=== PATIENT | female | born 1980 | race Caucasian/White ===

== ENCOUNTER 2020-08-09 19:16 | Emergency (ER) | payer OTHER ==
[~2020-08-09] VITALS: Ht 144.8 cm; Wt 49.9 kg
[2020-08-09 20:18] LABS: Source, Urine Clean Catch
[2020-08-09 20:28] LABS: Bilirubin, Urine Neg (Neg); Blood, Urine 5+ (Neg); Glucose Qualitative, Urine Neg (Neg); Ketones, Urine 1+ (Neg); Leukocyte Esterase, Urine 1+ (Neg); Nitrite, Urine Neg (Neg); Protein, Urine 4+ (Neg); Specific Gravity, Urine 1.015 (1.003-1.022); Urobilinogen, Urine NORM (Normal)
[2020-08-09 20:29] LABS: Appearance, Urine Hazy (Clear); Color, Urine Yellow (P-Yellow); Mucus Light (0-Heavy); Red Blood Cells, Urine TNTC /hpf (0-2); Squamous Epithelial Cells Few /hpf (Few); Transitional Epithelial Cells Few /hpf (0-Rare)
[2020-08-09 20:29] LABS: BASOPHILS ABSOLUTE AUTO 0.05 K/mm3 (0.00-0.23); BASOPHILS PERCENT AUTO 0 % (0-2); EOSINOPHILS ABSOLUTE AUTO 0.22 K/mm3 (0.00-0.68); EOSINOPHILS PERCENT AUTO 1 % (0-6); Hematocrit 34.2 % (33.0-51.0); IMMATURE GRAN ABSOLUTE AUTO 0.15 K/mm3 (0.00-0.10); IMMATURE GRAN PERCENT AUTO 1 % (0-1); LYMPHOCYTES ABSOLUTE AUTO 2.61 K/mm3 (0.84-5.20); LYMPHOCYTES PERCENT AUTO 16 % (21-46); MONOCYTES ABSOLUTE AUTO 1.15 K/mm3 (0.16-1.47); MONOCYTES PERCENT AUTO 7 % (4-13); Mean Corpuscular HGB 30.1 pg (26.0-34.0); Mean Corpuscular HGB Conc 32.2 g/dL (31.5-36.5); Mean Corpuscular Volume 93 fL (80-100); Mean Platelet Volume 10.5 fL (9.1-12.4); NEUTROPHILS ABSOLUTE AUTO 12.62 K/mm3 (1.96-9.15); NEUTROPHILS PERCENT AUTO 75 % (41-73); Platelet Count 321 K/mm3 (150-400); RDW Coefficient Variation 13.1 % (11.7-14.2); RDW Standard Deviation 45.1 fL (35.1-46.3); Red Blood Cell Count 3.66 M/mm3 (3.80-5.20)
[2020-08-09 20:30] LABS: Bacteria Mod /hpf
[2020-08-09 20:47] LABS: Alanine Aminotransfer (ALT/SGP 12 U/L (12-78); Albumin, Blood 3.1 g/dL (3.4-5.0); Albumin/Globulin Ratio 0.7 (0.8-1.8); Alk Phos 110 U/L (50-136); Anion Gap 6 mmol/L (6-16); Aspartate Aminotrans (AST/SGOT 10 U/L (12-37); Bilirubin, Total 0.3 mg/dL (0.1-1.0); Blood Urea Nitrogen 10 mg/dL (8-24); Bun/Creatinine Ratio 13.5 (12.0-20.0); CO2, Blood 27 mmol/L (21-32); Calcium, Blood 8.9 mg/dL (8.5-10.1); Chloride, Blood 106 mmol/L (98-108); Creatinine, Blood 0.74 mg/dL (0.40-1.00); Globulin, Blood 4.7 g/dL (2.2-4.0); Glomerular Filtration Rate >60 (60-); Glucose, Blood 95 mg/dL (70-99); Potassium, Blood 3.5 mmol/L (3.5-5.5); Sodium, Blood 139 mmol/L (136-145); Total Protein, Blood 7.8 g/dL (6.4-8.2)
[2020-08-09 21:27] LABS: Magnesium, Blood 1.9 mg/dL (1.6-2.4)
[2020-08-09] MEDS ORDERED: ONDA4ODT MM (22:35)
[2020-08-09] MEDS ORDERED: Keflex500 MG PO (22:35)
[2020-08-14] MEDS ORDERED: PRENATAL TABLE1 EAC2 PO (21:10)
[2020-08-15] MEDS ORDERED: IBUP200 PO (00:07)
[2020-08-15] MEDS ORDERED: ACET500 PO (00:08)
[2020-08-16] MEDS ORDERED: Prednisone10 MG PO (11:11)
== END 2020-08-09 23:46 | disposition home or self-care (01) ==
LOC: ER 19:16
PROVIDERS: Emergency Medicine
DX: N39.0 Urinary tract infection, site not specified (principal)
CPT/HCPCS: 36415; 74177; 80053; 81001; 83605; 83690; 83735; 84145; 85025; 87040; 87086; 96374-59; 96375; 99284-25; A9270; J1170; J2405; J7120; Q9967

== ENCOUNTER 2020-08-12 18:25 | Emergency (ER) | payer OTHER ==
[~2020-08-12 18:25] MED LIST: Keflex500 MG PO; ONDA4ODT MM
[2020-08-12 21:05] LABS: Appearance, Urine Hazy (Clear); Color, Urine Yellow (P-Yellow); Glucose Qualitative, Urine Neg (Neg); Ketones, Urine 3+ (Neg); Leukocyte Esterase, Urine 1+ (Neg); Nitrite, Urine Pos (Neg); Protein, Urine 4+ (Neg)
[2020-08-12 21:07] LABS: Bilirubin, Urine Neg (Neg); Blood, Urine 5+ (Neg); Urobilinogen, Urine NORM (Normal)
[2020-08-12 21:08] LABS: Bacteria Few /hpf; Red Blood Cells, Urine TNTC /hpf (0-2); Squamous Epithelial Cells Rare /hpf (Few)
[2020-08-12 21:19] LABS: BASOPHILS ABSOLUTE AUTO 0.07 K/mm3 (0.00-0.23); BASOPHILS PERCENT AUTO 0 % (0-2); EOSINOPHILS ABSOLUTE AUTO 0.19 K/mm3 (0.00-0.68); EOSINOPHILS PERCENT AUTO 1 % (0-6); Hematocrit 32.7 % (33.0-51.0); Hemoglobin 10.4 g/dL (11.5-16.0); IMMATURE GRAN ABSOLUTE AUTO 0.34 K/mm3 (0.00-0.10); IMMATURE GRAN PERCENT AUTO 2 % (0-1); LYMPHOCYTES PERCENT AUTO 12 % (21-46); MONOCYTES ABSOLUTE AUTO 1.01 K/mm3 (0.16-1.47); MONOCYTES PERCENT AUTO 6 % (4-13); Mean Corpuscular HGB 29.5 pg (26.0-34.0); Mean Corpuscular HGB Conc 31.8 g/dL (31.5-36.5); Mean Corpuscular Volume 93 fL (80-100); Mean Platelet Volume 10.5 fL (9.1-12.4); NEUTROPHILS ABSOLUTE AUTO 14.37 K/mm3 (1.96-9.15); NEUTROPHILS PERCENT AUTO 79 % (41-73); Platelet Count 361 K/mm3 (150-400); RDW Coefficient Variation 13.2 % (11.7-14.2); RDW Standard Deviation 44.8 fL (35.1-46.3); Red Blood Cell Count 3.53 M/mm3 (3.80-5.20); White Blood Cell Count 18.08 K/mm3 (4.00-11.30)
[2020-08-12 22:05] LABS: Alanine Aminotransfer (ALT/SGP 11 U/L (12-78); Albumin/Globulin Ratio 0.6 (0.8-1.8); Alk Phos 107 U/L (50-136); Anion Gap 7 mmol/L (6-16); Aspartate Aminotrans (AST/SGOT 7 U/L (12-37); Bilirubin, Total 0.2 mg/dL (0.1-1.0); Blood Urea Nitrogen 5 mg/dL (8-24); Bun/Creatinine Ratio 7.7 (12.0-20.0); CO2, Blood 28 mmol/L (21-32); Calcium, Blood 9.2 mg/dL (8.5-10.1); Chloride, Blood 105 mmol/L (98-108); Creatinine, Blood 0.65 mg/dL (0.40-1.00); Globulin, Blood 4.8 g/dL (2.2-4.0); Glomerular Filtration Rate >60 (60-); Glucose, Blood 88 mg/dL (70-99); Potassium, Blood 3.6 mmol/L (3.5-5.5); Sodium, Blood 140 mmol/L (136-145); Total Protein, Blood 7.8 g/dL (6.4-8.2)
[2020-08-12] MEDS ORDERED: Reglan10 MG PO (23:06)
[2020-08-12] MEDS ORDERED: CEPH500 PO (23:06)
== END 2020-08-12 23:17 | disposition home or self-care (01) ==
LOC: ER 18:25
PROVIDERS: Emergency Medicine; Physician Assistant
DX: N12 Tubulo-interstitial nephritis, not specified as acute or chronic (principal); E86.0 Dehydration; Z88.8 Allergy status to other drugs, medicaments and biological substances; Z88.1 Allergy status to other antibiotic agents; Z88.5 Allergy status to narcotic agent
CPT/HCPCS: 36415; 76770; 80053; 81001; 85025; 87086; 96365; 96375; 99284-25; A9270; J0690; J2765; J7030

== ENCOUNTER 2020-08-14 12:14 | Observation (INO) | payer OTHER ==
[~2020-08-14] VITALS: Ht 144.8 cm; Wt 47.6 kg
[~2020-08-14 12:14] MED LIST changes: +CEPH500 PO; +Reglan10 MG PO
[2020-08-14 13:05] LABS: BASOPHILS ABSOLUTE AUTO 0.09 K/mm3 (0.00-0.23); BASOPHILS PERCENT AUTO 1 % (0-2); EOSINOPHILS ABSOLUTE AUTO 0.25 K/mm3 (0.00-0.68); EOSINOPHILS PERCENT AUTO 1 % (0-6); Hematocrit 37.8 % (33.0-51.0); IMMATURE GRAN ABSOLUTE AUTO 0.51 K/mm3 (0.00-0.10); IMMATURE GRAN PERCENT AUTO 3 % (0-1); LYMPHOCYTES ABSOLUTE AUTO 2.16 K/mm3 (0.84-5.20); LYMPHOCYTES PERCENT AUTO 12 % (21-46); MONOCYTES ABSOLUTE AUTO 0.73 K/mm3 (0.16-1.47); MONOCYTES PERCENT AUTO 4 % (4-13); Mean Corpuscular HGB 29.6 pg (26.0-34.0); Mean Corpuscular HGB Conc 31.7 g/dL (31.5-36.5); Mean Corpuscular Volume 93 fL (80-100); Mean Platelet Volume 10.1 fL (9.1-12.4); NEUTROPHILS ABSOLUTE AUTO 14.34 K/mm3 (1.96-9.15); NEUTROPHILS PERCENT AUTO 79 % (41-73); Platelet Count 453 K/mm3 (150-400); RDW Coefficient Variation 13.1 % (11.7-14.2); RDW Standard Deviation 45.1 fL (35.1-46.3); Red Blood Cell Count 4.05 M/mm3 (3.80-5.20); White Blood Cell Count 18.08 K/mm3 (4.00-11.30)
[2020-08-14 13:25] LABS: Alanine Aminotransfer (ALT/SGP 14 U/L (12-78); Albumin, Blood 3.2 g/dL (3.4-5.0); Albumin/Globulin Ratio 0.6 (0.8-1.8); Alk Phos 119 U/L (50-136); Anion Gap 7 mmol/L (6-16); Aspartate Aminotrans (AST/SGOT 12 U/L (12-37); Bilirubin, Total 0.3 mg/dL (0.1-1.0); Blood Urea Nitrogen 3 mg/dL (8-24); Bun/Creatinine Ratio 4.3 (12.0-20.0); CO2, Blood 26 mmol/L (21-32); Calcium, Blood 9.6 mg/dL (8.5-10.1); Chloride, Blood 107 mmol/L (98-108); Creatinine, Blood 0.69 mg/dL (0.40-1.00); Globulin, Blood 5.4 g/dL (2.2-4.0); Glomerular Filtration Rate >60 (60-); Glucose, Blood 90 mg/dL (70-99); Potassium, Blood 3.8 mmol/L (3.5-5.5); Sodium, Blood 140 mmol/L (136-145); Total Protein, Blood 8.6 g/dL (6.4-8.2)
[2020-08-14 18:51] LABS: Source, Urine Clean Catch
[2020-08-14 19:04] LABS: Bilirubin, Urine Neg (Neg); Blood, Urine 4+ (Neg); Glucose Qualitative, Urine Neg (Neg); Ketones, Urine 2+ (Neg); Leukocyte Esterase, Urine Neg (Neg); Nitrite, Urine Neg (Neg); Protein, Urine 3+ (Neg); Urobilinogen, Urine NORM (Normal)
[2020-08-14 19:14] LABS: Amorphous Light (0-Heavy); Appearance, Urine Hazy (Clear); Bacteria Few /hpf; Color, Urine Yellow (P-Yellow); Mucus Mod (0-Heavy); Red Blood Cells, Urine 50-100 /hpf (0-2); Squamous Epithelial Cells Mod /hpf (Few); White Blood Cells, Urine Rare /hpf (0-5)
[2020-08-14] MEDS ORDERED: LOW DOSE ASPIRI81 M1 PO (21:09)
[2020-08-14] MEDS ORDERED: PRENATAL TABLE1 EAC2 PO ×2 (21:10)
[2020-08-15] MEDS ORDERED: IBUP200 PO ×2 (00:07)
[2020-08-15] MEDS ORDERED: ACET500 PO ×2 (00:08)
--- NOTE | 2020-08-15 00:25 | NUR ---
TYLENOL PATIENT STATES NOT ALLERGIC TO TYLENOL. ONLY ALLERGIC TO THE OTHER COMPONENT IN VICODIN. CLARIFIED THIS WITH PATIENT AND RELAYED TO DR. MARCOS.
[2020-08-15 04:57] LABS: BASOPHILS ABSOLUTE AUTO 0.04 K/mm3 (0.00-0.23); BASOPHILS PERCENT AUTO 0 % (0-2); EOSINOPHILS ABSOLUTE AUTO 0.02 K/mm3 (0.00-0.68); EOSINOPHILS PERCENT AUTO 0 % (0-6); Hematocrit 33.7 % (33.0-51.0); Hemoglobin 10.9 g/dL (11.5-16.0); IMMATURE GRAN ABSOLUTE AUTO 0.33 K/mm3 (0.00-0.10); IMMATURE GRAN PERCENT AUTO 2 % (0-1); LYMPHOCYTES ABSOLUTE AUTO 1.02 K/mm3 (0.84-5.20); LYMPHOCYTES PERCENT AUTO 6 % (21-46); MONOCYTES ABSOLUTE AUTO 0.14 K/mm3 (0.16-1.47); MONOCYTES PERCENT AUTO 1 % (4-13); Mean Corpuscular HGB 29.6 pg (26.0-34.0); Mean Corpuscular HGB Conc 32.3 g/dL (31.5-36.5); Mean Corpuscular Volume 92 fL (80-100); Mean Platelet Volume 10.4 fL (9.1-12.4); NEUTROPHILS ABSOLUTE AUTO 14.96 K/mm3 (1.96-9.15); NEUTROPHILS PERCENT AUTO 91 % (41-73); Platelet Count 394 K/mm3 (150-400); RDW Coefficient Variation 13.1 % (11.7-14.2); Red Blood Cell Count 3.68 M/mm3 (3.80-5.20); White Blood Cell Count 16.51 K/mm3 (4.00-11.30)
[2020-08-15 05:42] LABS: Alanine Aminotransfer (ALT/SGP 10 U/L (12-78); Albumin, Blood 2.6 g/dL (3.4-5.0); Albumin/Globulin Ratio 0.6 (0.8-1.8); Alk Phos 102 U/L (50-136); Anion Gap 5 mmol/L (6-16); Aspartate Aminotrans (AST/SGOT 8 U/L (12-37); Bilirubin, Total <0.1 mg/dL (0.1-1.0); Blood Urea Nitrogen 6 mg/dL (8-24); Bun/Creatinine Ratio 10.5 (12.0-20.0); CO2, Blood 28 mmol/L (21-32); Calcium, Blood 8.8 mg/dL (8.5-10.1); Chloride, Blood 107 mmol/L (98-108); Creatinine, Blood 0.57 mg/dL (0.40-1.00); Globulin, Blood 4.4 g/dL (2.2-4.0); Glomerular Filtration Rate >60 (60-); Glucose, Blood 152 mg/dL (70-99); Potassium, Blood 3.5 mmol/L (3.5-5.5); Sodium, Blood 140 mmol/L (136-145)
--- NOTE | 2020-08-15 06:07 | NUR ---
SHIFT SUMMARY RECIEVED REPORT FROM MIKA LEE, ED. ARRIVED TO MEDICAL FLOOR VIA WHEELCHAIR @ 2315. NO ASSISTANCE NEEDED WITH TRANSFER TO BED. A/O, ABLE TO MAKE NEEDS KNOWN. COOPERATIVE WITH CARE. CALLS AND ANSWERS QUESTIONS APPROPRIATELY. STATES HAS BEEN DIAPHORETIC OFF AND ON; DURING INITIAL ASSESMENT AND DURING TIMES AFTER, SKIN DID NOT FEEL DIAPHORETIC. SHIRT WAS DAMP AFTER TAKING IT OFF. CONTINUES WITH IV FLUIDS; STATES FEELS LIKE THEY ARE HELPING. REPORTED HEADACHE RATED 7/10; MEDICATED WITH APAP AFTER TORADOL IN ED. APPEARED TO REST WELL AFTER AROUND 0330. VSS/AFEBRILE. NO OTHER ACUTE CHANGES NOTED. BED REMAINS IN LOWEST POSITION. BSC NEXT TO BED. CALL LIGHT AND BELONGINGS WITHIN REACH. CONTINUE WITH CURRENT PLAN OF CARE. REPORT TO LAURITA LEE.
--- NOTE | 2020-08-15 09:00 | NUR ---
LAB CLARIFICATION: DISCUSSED WITH DR. GOODMAN THE STAT LAB FOR ANGIOTENSIN CONVERTING ENZYME. SHE WOULD LIKE IT A BLOOD DRAW. CORRECTED ORDER AND DISCUSSED WITH CANDLE MOLDER MACHINE.
--- NOTE | 2020-08-15 11:31 | NUR ---
Echocardiogram completed.
--- NOTE | 2020-08-15 19:07 | NUR ---
END OF SHIFT SUMMARY: PATIENT REPORTED THAT SHE FELT SO MUCH BETTER THROUGHOUT THE SHIFT. PATIENT REPORTED THAT SHE IS NOW ABLE TO RUB HER LOWER ABDOMEN WITHOUT PAIN. PATIENT TOLERATED PO INTAKE WITHOUT NAUSEA OR DISCOMFORT. PATIENT EASILY ABLE TO STAND AND TRANSFER TO THE [facility]. PATIENT DENIED DIZZINESS, WEAKNESS, OR LIGHTHEADEDNESS. THE INFLAMMED AREAS ON THE PATIENT'S LEGS REMAINED VERY LIGHT PINK OR RESOLVED THROUGHOUT THE SHIFT. PATIENT STATED THAT HER LEGS AND THE SPOTS NO LONGER HURT. PATIENT REPORTED VAGINAL ITCHING AND THAT SHE GETS A YEAST INFECTION WHEN SHE TAKES ANTIBIOTICS. DISCUSSED WITH DR. GOODMAN AND NEW ORDERS ENTERED.
[2020-08-16 04:37] LABS: Hematocrit 29.5 % (33.0-51.0); Hemoglobin 9.7 g/dL (11.5-16.0); Mean Corpuscular HGB 29.7 pg (26.0-34.0); Mean Corpuscular HGB Conc 32.9 g/dL (31.5-36.5); Mean Corpuscular Volume 90 fL (80-100); Mean Platelet Volume 10.1 fL (9.1-12.4); Platelet Count 445 K/mm3 (150-400); RDW Standard Deviation 43.2 fL (35.1-46.3); Red Blood Cell Count 3.27 M/mm3 (3.80-5.20); White Blood Cell Count 22.89 K/mm3 (4.00-11.30)
[2020-08-16 04:58] LABS: Albumin, Blood 2.4 g/dL (3.4-5.0); Anion Gap 5 mmol/L (6-16); Blood Urea Nitrogen 6 mg/dL (8-24); CO2, Blood 26 mmol/L (21-32); Calcium, Blood 8.7 mg/dL (8.5-10.1); Chloride, Blood 109 mmol/L (98-108); Glomerular Filtration Rate >60 (60-); Glucose, Blood 102 mg/dL (70-99); Phosphorus, Blood 3.9 mg/dL (2.5-4.9); Potassium, Blood 3.8 mmol/L (3.5-5.5); Sodium, Blood 140 mmol/L (136-145)
--- NOTE | 2020-08-16 05:46 | NUR ---
SHIFT SUMMARY: AOX3, INDEPENDENT IN THE ROOM. LUNG SOUNDS ARE CLEAR. HR SINUS ON TELE. NEW IV IN LEFT HAND DUE TO INFILTRATE OF OTHER. RED SPOTS BILATERAL LEGS HAVE DECREASED IN REDNESS AND SIZE. NO LONGER PAINFUL. STILL HAS SOME TINGLING IN THE TOES. MEDICATED FOR NAUSEAX1. APPETITE FAIR. DID STATES SHE HAD A METALLIC TASTE IN HER MOUTH PRIOR TO HOSPITALIZATION BUT SHE NO LONGER HAS IT. HEADACHES ONLY COME ON WHEN SHE IS HAVING GI UPSET. OVERALL SHE FEELS SHE IS DOING BETTER AND IS READY TO GO HOME. VSS/AFEBRILE. CALL LIGHT IN REACH.
[2020-08-16] MEDS ORDERED: Prednisone10 MG PO ×2 (11:11)
--- NOTE | 2020-08-16 16:38 | NUR ---
PT WAS DISCHARGED FROM THE UNIT. IV REMOVED. DISCHARGE INSTRUCTIONS REVIEWED. MEDICATONS FAXED TO PHARMACY. PT AMBULATED OFF THE UNIT WITH DIRECTOR OF CULTURE. TO DRIVE HOME
[2020-08-19 22:09] LABS: QUANTIFERON MITOGEN VALUE 2.84 IU/mL (.); QUANTIFERON NIL VALUE 0.13 IU/mL (.); QUANTIFERON TB1 AG VALUE 0.06 IU/mL (.); QUANTIFERON TB2 AG VALUE 0.03 IU/mL (.); QUANTIFERON-TB GOLD PLUS Negative (Negative)
== END 2020-08-16 16:20 | disposition home or self-care (01) ==
LOC: ER 12:14 → MEDS 12:16 → ER 20:42 → MEDS 20:42 → ER 08-15 02:15 → MEDS 08-15 02:15
PROVIDERS: Internal Medicine; Nurse Practitioner Acute Care; Physician Assistant; ADMIT Internal Medicine
DX: O99.73 Diseases of the skin and subcutaneous tissue complicating the puerperium (principal); O86.22 Infection of bladder following delivery; O99.893 Other specified diseases and conditions complicating puerperium; L52 Erythema nodosum; E86.0 Dehydration; R19.7 Diarrhea, unspecified; M41.9 Scoliosis, unspecified; Z79.82 Long term (current) use of aspirin
CPT/HCPCS: 36415; 71046; 80053; 80069; 81001; 82164; 83605; 85025; 85027; 85651; 86038; 86060; 86225; 86308; 86480; 87040; 87081; 87430; 93306; 93970; 96365; 96366; 96367; 96372; 96372-59; 96375; 96376; 99284-25; A9270; G0378; J0295; J0690; J1650; J1885; J2405; J2930; J7030; J7050; J7512

== ENCOUNTER → 2020-09-12 | Outpatient (CLI) | payer OTHER ==
[~2020-09-12] MED LIST changes: +ACET500 PO; +IBUP200 PO; +LOW DOSE ASPIRI81 M1 PO; +PRENATAL TABLE1 EAC2 PO; +Prednisone10 MG PO
== END | disposition home or self-care (01) ==
LOC: LAB SHORT 15:24 → LAB 15:24
DX: R31.29 Other microscopic hematuria (principal); R30.9 Painful micturition, unspecified
CPT/HCPCS: 87086